=== PATIENT | male | born 1995 | race Caucasian/White ===

== ENCOUNTER 2020-11-16 23:45 | Emergency (ER) | payer OTHER, SELFPAY ==
[2020-11-16 23:46] VITALS: BP 145/71; PULSE 107; RESP 18; TEMP 37.4; O2SAT 96; BMI 31.6
--- NOTE | 2020-11-17 00:09 | EKG12_ITS ---
Test Reason : DYSRHYTHMIA Blood Pressure : / mmHG Vent. Rate : 101 BPM Atrial Rate : 101 BPM P-R Int : 126 ms QRS Dur : 092 ms QT Int : 344 ms P-R-T Axes : 035 075 016 degrees QTc Int : 446 ms Sinus tachycardia Possible Inferior infarct , age undetermined Abnormal ECG Confirmed by SAMMY LEWIS, KHARI ([id number]), graphics editor MATY STEWART ([id number]) on 11/19/2020 9:00:38 AM Referred By: MEETA Confirmed By:KHARI CHRISTIANSON MD
--- NOTE | 2020-11-17 00:09 | RAD_ITS ---
HISTORY: COVID x9 days, increase of shortness of breath, cough, chest pain. EXAM: XR Chest 1 View: COMPARISON: None FINDINGS: # of images incl. paperwork: 1 Multifocal bilateral groundglass opacities are present. Heart is not enlarged. No acute osseous pathology perceived. Pulmonary vascularity is distinct. No effusions. RAD/Chest 1 View (Portable) IMPRESSION: Airspace disease consistent with pneumonia, and in a patient with Covid 19 positivity, Covid 19 pneumonia.. at 0113 Reported and signed by: Indra Wall MD Electronically Signed: Indra Wall MD at 1:12 EST Tel , Service support ,
--- NOTE | 2020-11-17 00:10 | ED.VIS.GEN ---
History of Present Illness Chief Complaint: Cough Informant: Patient Narrative: Patient stated he is on day 9 of cover. He has been having some intermittent fevers and chills and cough. He noticed a little bit of chest burning today. This concerned him. He called his doctor who told him to come in for further evaluation. Denies any pain or swelling in his legs. No history of DVT or PE. He has not taking any chronic medications. He has no chronic medical problems. No previous surgeries. Denies any significant shortness of breath. Current severity is mild Past Medical History - Allergies and Home Meds Allergies/Adverse Reactions: Allergies No Known Allergies Allergy (Verified 11/16/20 23:50) Primary Care Physician: Doctor,Your [STAFF PHYSICIAN] - Prior records reviewed: Yes Past Medical History: None Surgical History: no surgical history Lives: With Family Alcohol: None Drugs: None Review of Systems General: Reports: Malaise. Denies: Chills, Fever, Sweats Eyes: Denies: Visual changes - bilaterally, Diplopia ENT: Reports: Rhinorrhea. Denies: Sore throat Cardiovascular: Reports: Chest pain. Denies: Palpitations Respiratory: Reports: Cough. Denies: Dyspnea, Dyspnea on exertion Gastrointestinal: Denies: Abdominal pain, Nausea, Vomiting, Diarrhea, Melena, Hematochezia Genitourinary: Denies: Dysuria, Hematuria, Frequency Musculoskeletal: Denies: Back pain, Extremity Pain Skin: Denies: Rash, Wounds Neurological: Denies: Headache, Weakness, Numbness Physical Exam Vital Signs/Narrative: Vital Signs Temp Pulse Resp BP Pulse Ox 11/16/20 23:46 99.4 F H 107 H 18 145/71 H 96 General: Well nourished, Well developed, No Acute Distress Head: Normocephalic, Atraumatic Eyes: Perrl, EOMI ENT: Moist mucous membranes, No rhinorrhea Neck: Supple, Nontender Cardiovascular: Regular rate, Regular rhythm, No murmurs Respiratory: No distress, CTA bilaterally, Chest nontender Abdomen: Soft, Nontender, Nondistended, Normal bowel sounds Back: Nontender, Normal Inspection Extremities: Nontender, No edema Skin: Normal color, No rash Neurological: Alert, Oriented x3, Cranial nerves II-XII grossly intact, Normal Strength, Normal Sensation Psychological: Normal affect, Normal Mood Diagnostic/Tx/Re-eval - Medical Decision Making Patient resting comfortably. Lab work and EKG obtained. Chest x-ray obtained. EKG shows sinus tachycardia rate of 101. This is my interpretation. T wave inversion inferior lead III. Otherwise nothing acute. Chest x-ray my interpretation shows Covid pneumonitis pattern. Lab work shows CBC and BMP does show no acute abnormalities. On reevaluation patient resting comfortably. I do not feel he needs further lab work or imaging. I suspect he has Covid pneumonitis that is going to take longer to clear out. Tomorrow is day 10. I do not feel he needs acute steroids. To follow-up as an outpatient. ED Disposition - Plan for ED Patient: Disposition: Home or Assisted Living Diagnosis: Coronavirus infection Instructions: Coronavirus Disease 2019 (COVID-19): Overview Referrals: Doctor,Your [STAFF PHYSICIAN] -
--- NOTE | 2020-11-17 00:10 | ED.RN ---
no old ekgs on file
[2020-11-17] MEDS: Ketorolac 15 MG/ML Vial IV (01:07)
[2020-11-17 01:18] LABS: Absolute Lymphocyte Count 1.12 X10^3/uL (0.83-4.51); Absolute Neutrophil Count 4.1 X10^3/uL (2.0-7.7); Basophil# 0.01 X10^3/uL; Basophil% 0.2 % (0-1); Eosinophil# 0.06 X10^3/uL; Hematocrit 46.6 % (40-54); Hemoglobin 15.7 g/dL (13.0-16.5); Lymphocyte # 1.12 X10^3/ul (4.0); Lymphocyte % 18.9 % (19-41); Mean Corp Hgb Conc 33.7 g/dL (32-36); Mean Corpuscular Hgb 29.6 pg (27.0-32.0); Mean Corpuscular Volume 87.8 fL (80-94); Mean Platelet Vol. 9.7 fl (6.2-12.0); Monocyte% 10.1 % (0-10); NRBC Flagged by Analyzer 0 % (0-5); Neutrophil # 4.11 X10^3/uL (2.7-7.7); Neutrophil % 69.3 % (47-70); Platelet Count 189 K/mm3 (150-450); RBC Distribution Width CV 11.5 % (11.6-14.6); RBC Distribution Width SD 37.1 fl (35.1-43.9); Red Blood Count 5.31 M/mm3 (4.6-6.2); White Blood Count 5.9 K/mm3 (4.4-11.0)
[2020-11-17 01:41] LABS: Anion Gap 5 (5-15); BUN 9 mg/dL (7-18); BUN/Creat Ratio 6.9 RATIO (10-20); Calcium,Total 8.8 mg/dL (8.5-10.1); Chloride 107 mmol/L (98-107); EST Glomerular Filtration Rate 71 mL/min (>60); Est Glom Filt Rate - Afr Amer 86 mL/min (>60); Estimated Creatinine Clearance 89.69 ml/min; Glucose 106 mg/dL (74-106); Potassium 4.1 mmol/L (3.5-5.1); Sodium Level 140 mmol/L (136-145)
[2020-11-17 02:32] VITALS: BP 134/85; PULSE 76; RESP 16; O2SAT 98
== END 2020-11-17 02:32 | disposition home or self-care (01) ==
PROVIDERS: Emergency Provider Emergency Medicine; PCP Family Medicine
DX: U07.1 COVID-19 (principal)
CPT/HCPCS: 71045; 80048; 85025; 93005; 96374; 99283; A4216

== ENCOUNTER 2025-09-12 15:11 | Emergency (ER) | payer OTHER, SELFPAY ==
[2025-09-12 15:12] VITALS: BP 159/109; PULSE 104; RESP 18; TEMP 37.1; O2SAT 100; BMI 30.1
--- NOTE | 2025-09-12 15:37 | ED.VIS.CHEST ---
HPI History of Present Illness Chief Complaint: Chest Pain Detail of Chief Complaint: Intermittent chest pain since 3 AM Informant: patient Onset/Context/Timing Onset: Today Activity at onset: sudden and sleep Timing: Intermittent and Lasts (Seconds, 5-10) Quality: Positive for Sharp Location: Left Parasternal Current Severity: Gone Maximum Severity: Moderate Worsened By: Nothing Relieved By: Nothing Associated Symptoms: Negative for Nausea, Vomiting, Diaphoresis, Dyspnea, Cough, Fever, Lightheadedness, Acid Reflux or Palpitations Narrative Narrative: Patient is a 30-year-old male. He has no significant past medical history. He has no history of smoking. He does have history of alcohol use. There is no history of pancreatitis. He has no intolerance to greasy or fried foods or spicy foods. This pain awoke him from sleep at 3:00. He has had multiple episodes since that time. Change in position does not alter his symptoms. Activity does not alter his symptoms. He has not taken anything for the discomfort. He has no history of peptic ulcer disease, hiatal hernia or reflux. He denies any change in color, consistency or caliber of his stool. He denies black or maroon stool. He has no history of VTE. He denies leg pain, swelling discoloration. He has no risk factors for VTE. Asked if he was nervous. He initially looked at me. I informed him the reason I was asking to because of his heart rate and blood pressure. He states his last annual exam was this summer and had no abnormalities. He has had no recent history of upper respiratory infection. He denies cough. Grandfather had cardiac event at the end of his life otherwise no family history of coronary disease. Prior Similar Symptoms: No Recent Illness/Hospitalization: No CVD Risk Factors: Negative for Hypertension, Diabetes, Hypercholesterolemia, Family History 1' </=55 or Smoking PE Risk Factors: Negative for Recent Travel/Surgery, Recent Immobilization, Prior DVT or PE or Cancer TAD Risk Factors: Negative for Marfan's Syndrome, Hypertension or Family History PFSH PFSH Home Medications ?Medication ?Instructions ?Recorded ?Last Taken ?Type NK 11/17/20 Unknown History Allergy/AdvReac Type Severity Reaction Status Date / Time No Known Allergies Allergy Verified 09/12/25 15:12 Social History (Updated 09/12/25 @ 15:[address] Glen Simons MD) Smoking Status: Never smoker alcohol intake: current substance use type: does not use ROS ROS ED Constitutional Constitutional ED: Denies chills, fever(s), subjective, sweats or weight loss Eyes Eyes: Reports none ENT ENT ED: Denies ear pain, rhinorrhea or sore throat Cardiovascular Cardiovascular: Reports as per HPI; Denies orthopnea or paroxysmal nocturnal dyspnea Respiratory/Chest Respiratory/Chest: Denies cough, dyspnea, dyspnea on exertion, orthopnea or paroxysmal nocturnal dyspnea Gastrointestinal Gastrointestinal: Denies abdominal pain, diarrhea, melena, nausea or vomiting Genitourinary Genitourinary ED: Denies dysuria, LMP (females 10-50) or urinary frequency Musculoskeletal Musculoskeletal: Denies arthralgias, back pain or myalgias Integumentary Denies abscess, Abrasions or rash Neurologic Neurologic: Denies headache(s), paresthesias or weakness Psychiatric Psychiatric: Denies anxiety or depression Endocrine Endocrinology: Denies cold intolerance or heat intolerance Hematologic/Lymphatic Hematologic/Lymphatic: Denies easy bleeding or easy bruising Allergic/Immunologic Allergic/Immunologic ED: Denies mouth swelling or tongue swelling EXAM Physical Exam Const Vital Signs: 09/12/25 15:12 09/12/25 15:15 09/12/25 15:29 Temperature 98.7 F Temperature Source Oral Pulse Rate 104 H Respiratory Rate 18 Respiratory Effort Normal Blood Pressure 159/109 H Blood Pressure Mean 125 Pulse Ox 100 Oxygen Delivery Method Room Air Room Air 09/12/25 15:55 09/12/25 16:59 09/12/25 17:55 Temperature Temperature Source Pulse Rate 83 82 86 Respiratory Rate Respiratory Effort Blood Pressure 150/97 H 138/93 H Blood Pressure Mean 114 108 Pulse Ox 99 98 96 Oxygen Delivery Method Room Air Room Air Room Air Positive well nourished and well developed Constitutional Narrative: Patient's blood pressure is elevated. His heart rate is elevated. General Appearance ED: well developed and NAD HEENT Reports moist mucous membranes normocephalic and atraumatic Eyes EOMs intact bilaterally General Eye ED: Negative for pale conjunctiva or scleral icterus Neck no lymphadenopathy and no JVD Chest Wall inspection of chest normal and palpation of chest normal Chest Narrative: No reproducible tenderness. Resp normal respiratory effort Cardio regular rate, regular rhythm, S1 normal heart sound, S2 normal heart sound and no murmurs Peripheral Pulses: pulses 2+ throughout GI normal to inspection, nondistended, normoactive bowel sounds, soft to palpation, non-tender, non-distended and no masses; Negative for hepatosplenomegaly Back/Spine no CVA tenderness Extremity normal to inspection Extremity Narrative: There is no asymmetry, swelling, discoloration, leg vein distention, palpable cords or tenderness along the distribution of the deep venous system. Neuro oriented x3, CN's II-XII intact bilaterally and no sensory deficits noted Sensorium / Orientation: awake and alert Motor Exam: strength 5/5 throughout Psych mental status grossly normal Skin no rashes or lesions noted and no wounds MDM MDM MDM Narrative Medical decision making narrative: Patient with atypical chest pain. Differential is cardiac versus noncardiac. Noncardiac would be pain of unknown etiology, GI etiology, pulmonary etiology, it is not consistent with PE, thoracic aortic dissection, biliary disease, costochondritis. To evaluate this will obtain EKG, chest x-ray and appropriate blood work. Lab Data Attestation: I reviewed the patient's lab results. Lab results narrative: CBC is unremarkable. Hemoglobin slightly elevated 16.7. Electrolyte panel is normal. Troponin is less than 6. With onset at 3 AM lasting only seconds and normal troponin in my opinion this is not cardiac in 2-hour 4 hours not needed. Labs: Laboratory Results - last 24 hr 09/12/25 09/12/25 15:26 15:45 WBC 7.9 RBC 5.52 Hgb 16.7 H Hct 47.5 MCV 86.1 MCH 30.3 MCHC 35.2 RDW Std Deviation 37.3 RDW Coeff of Josephine 11.9 Plt Count 266 MPV 9.5 Immature Gran % (Auto) 0.300 Neut % (Auto) 52.4 Lymph % (Auto) 36.1 Keith % (Auto) 8.2 Eos % (Auto) 2.6 Baso % (Auto) 0.4 Absolute Neuts (auto) 4.2 Absolute Lymphs (auto) 2.86 Nucleated RBC % 0 Sodium 142 Potassium 4.0 Chloride 104 Carbon Dioxide 26.4 Anion Gap 11 BUN 15 Creatinine 1.17 Estim Creat Clear Calc 106.95 Est GFR (MDRD) Non-Af 86 BUN/Creatinine Ratio 12.6 Glucose 106 H Calcium 9.2 Troponin T High Sens < 6 Troponin T Hi Sens 2 Hr Cancelled Radiography Chest X-Ray - ED: 1 View, Read by ED Physician (Interpreted by me at 1559.), Normal, Heart, Lungs, Mediastinum, Bony Structures and No Acute Disease Diagnostic Testing: Clinical Impression(s) from Imaging Studies Chest X-Ray 09/12/25 15:45 IMPRESSION: No Acute Findings. Reading Location: [facility] Treatment and Re-Evaluation :: Patient was informed the cause of his pain is unknown known. He was told that the things that are serious have been ruled out. He had comfort in this. Plan is to discharge to home. I informed that with seconds of pain multiple times unable to determine what is the cause of his symptoms. Discharge Plan Triage Chief Complaint: Chest Pain ED Provider: Glen Simons Dx/Rx/DC Orders Clinical Impression: Intermittent left-sided chest pain, Elevated blood pressure reading without diagnosis of hypertension, Adult BMI 30.0-30.9 kg/sq m Instructions: ED Chest Pain, Noncardiac, ED Chest Pain, Uncertain Cause, ED Hypertension, To Be Confirmed Prescriptions: No Action NK Primary Care Provider: Quintin Orozco Referrals: Jarret Chamorro MD [Non-Staff, Family Practice] - 1-2 Weeks Activity Restrictions/Additional Instructions: You had several blood pressure readings that were elevated. You will need to have this reassessed in 1 to 2 weeks by your doctor. Print Language: Italian Disposition Disposition: Home, Self Care
[2025-09-12 15:38] LABS: Hematocrit 47.5 % (40-54); Hemoglobin 16.7 g/dL (13.0-16.5); Immature Granulocytes Count 0.020 X10^3/uL (0.0-0.0); Mean Corp Hgb Conc 35.2 g/dL (32-36); Mean Corpuscular Volume 86.1 fL (80-94); Mean Platelet Vol. 9.5 fl (6.2-12.0); NRBC Flagged by Analyzer 0 % (0-5); Platelet Count 266 K/mm3 (150-450); RBC Distribution Width CV 11.9 % (11.6-14.6); RBC Distribution Width SD 37.3 fl (35.1-43.9); Red Blood Count 5.52 M/mm3 (4.6-6.2); White Blood Count 7.9 K/mm3 (4.4-11.0)
--- NOTE | 2025-09-12 15:45 | RAD_ITS ---
PROCEDURE: RAD/Chest 1 View (Portable)
[2025-09-12 15:55] VITALS: BP 150/97; PULSE 83; O2SAT 99
[2025-09-12 16:20] LABS: Anion Gap 11 (5-15); BUN 15 mg/dL (4-19); BUN/Creat Ratio 12.6 RATIO (10-20); Calcium,Total 9.2 mg/dL (7.6-11.0); Carbon Dioxide 26.4 mmol/L (21.0-32.0); Chloride 104 mmol/L (98-108); Estimated Creatinine Clearance 106.95 ml/min (50-250); Glucose 106 mg/dL (70-99); Potassium 4.0 mmol/L (3.3-5.1); Troponin T High Sensitivity < 6 ng/L (<=22)
[2025-09-12 16:59] VITALS: BP 138/93; PULSE 82; O2SAT 98
[2025-09-12 17:55] VITALS: PULSE 86; O2SAT 96
[2025-09-12 18:17] LABS: Troponin T High Sens 2 HR < 6 ng/L (<=22)
[2025-09-12 18:23] VITALS: BP 143/93; PULSE 80; RESP 15; TEMP 37.1; O2SAT 99
== END 2025-09-12 18:23 | disposition home or self-care (01) ==
PROVIDERS: Emergency Provider Emergency Medicine; PCP Family Medicine; Visit Provider Emergency Medicine
DX: R07.89 Other chest pain (principal); R03.0 Elevated blood-pressure reading, without diagnosis of hypertension
CPT/HCPCS: 71045; 80048; 84484; 85025; 93005; 99284; A4216